=== PATIENT | female | born 1985 | race Native Hawaiian/Other Pacific Islander ===

== ENCOUNTER 2020-09-08 08:26 | Outpatient (CLI) | payer BC | END 2020-09-08 22:31 | disposition home or self-care (01) | LOC: US 08:26 | PROVIDERS: ATTEND Physician Assistant | DX: R10.13 Epigastric pain (principal) ==

== ENCOUNTER 2020-12-07 09:56 | Outpatient (CLI) | payer BC | END 2020-12-07 19:31 | disposition home or self-care (01) | LOC: US 09:56 | PROVIDERS: ATTEND Nurse Practitioner Family | DX: N63.20 Unspecified lump in the left breast, unspecified quadrant (principal) ==